=== PATIENT | female | born 1960 | race African-American/Black ===

== ENCOUNTER 2019-08-03 07:06 | Emergency (ER) | payer BC ==
[~2019-08-03] VITALS: Ht 180.3 cm; Wt 127.6 kg
[2019-08-03 07:13] VITALS: BP 174/97; Ht 180.3 cm; Wt 127.6 kg
== END 2019-08-03 07:34 | disposition home or self-care (01) ==
LOC: ED 07:06
DX: S30.0XXA Contusion of lower back and pelvis, initial encounter (principal); W18.30XA Fall on same level, unspecified, initial encounter; Y93.89 Activity, other specified; Y92.89 Other specified places as the place of occurrence of the external cause; Y99.8 Other external cause status